=== PATIENT | female | born 1965 | race Asian ===

== ENCOUNTER 2023-10-04 11:34 | Outpatient (CLI) | payer OTHER, SELFPAY ==
--- NOTE | ~2023-10-04 | XR_ITS ---
EXAMINATION: XR shoulder LT min 2V DATE: 10/04/2023 11:52 INDICATION: Left shoulder pain TECHNIQUE: AP internally and externally rotated, AP oblique externally rotated and axillary views of the left shoulder were obtained. COMPARISON: None FINDINGS: Normal alignment. No fracture. Glenohumeral joint is normal. Mild acromioclavicular osteoarthritis. Soft tissues are unremarkable. Visualized portions of the mid and upper lungs are clear. IMPRESSION: Mild left acromioclavicular osteoarthritis. No acute osseous adenopathy. Reviewed, dictated and finalized at location B.
== END 2023-10-04 11:35 ==
LOC: MICIMG 11:36
PROVIDERS: PCP Physician Assistant; Visit Provider Physician Assistant
DX: M19.012 Primary osteoarthritis, left shoulder (principal); Z82.62 Family history of osteoporosis; Z12.39 Encounter for other screening for malignant neoplasm of breast
CPT/HCPCS: 73030

== ENCOUNTER 2024-03-06 08:05 | Outpatient (CLI) | payer OTHER, SELFPAY ==
--- NOTE | ~2024-03-06 | DEXA_ITS ---
Bone Density Report Name: MIHAI UP Age: 58 Sex: Female Ethnicity: White Date of : 1965 Indication: postmenopausal; screening for osteoporosis; hysterectomy; Referring Provider: RUPAL, GENOVEVA Study: Bone densitometry was performed. Exam Date: March 06, 2024 Accession number: [id number] Bone Density: Region BMD T-score Z-score Classification AP Spine(L1-L4) 0.710 -3.1 -1.6 Osteoporosis Femoral Neck (Left) 0.630 -2.0 -0.7 Osteopenia Total Hip (Left) 0.826 -0.9 0.0 Normal Femoral Neck (Right) 0.601 -2.2 -0.9 Osteopenia Total Hip (Right) 0.806 -1.1 -0.1 Osteopenia Total Hip Mean 0.816 -1.0 -0.1 Normal World Health Organization criteria for BMD impression classify patients as: Normal (T-score at or above -1.0), Osteopenia (T-score between -1.0 and -2.5), or Osteoporosis (T-score at or below -2.5). 10-year Fracture Risk: FRAX not reported because: Some T-score for Spine Total or Hip Total or Femoral Neck at or below -2.5 Clinical Information Provided by Patient: Has used the following medications: Calcium Has the following medical conditions: Hysterectomy Patient maximum height was 64 No regular weight bearing exercise Drinks caffeinated beverages Onset of menses at age 11 Number of children 2 Impression: The patient has osteoporosis, based on the Total Spine T-score. Discussion: INCREASED RISK OF FRACTURE. BONE DENSITY IS UNDESIRABLY LOW AT ONE OR MORE SKELETAL SITES, CONSISTENT WITH POSTMENOPAUSAL OSTEOPOROSIS. This patient's lowest T-score meets the World Health Organization's (WHO) criteria for osteoporosis at one or more sites (T-score -2.5 or below). In untreated patients, the risk of osteoporotic fracture increases approximately two-fold for each 1.0 SD decrease in T-score. Low bone density is not the only risk factor for fracture; also consider factors such as patient's age, frailty or poor health, risk of falling, risk of injury, previous osteoporotic fracture, family history of osteoporosis, cigarette smoking, low body weight, etc. Not everyone with low bone mineral density has osteoporosis; osteomalacia and other metabolic bone disorders should also be considered. Patients who have osteoporosis should be evaluated for specific diseases and conditions (secondary causes) that may cause or contribute to bone loss. The [place] [employer] (AACE) and National Osteoporosis Foundation (NOF) recommend pharmacologic intervention for all postmenopausal women whose T-score is in this range. The patient should follow a healthful lifestyle (good nutrition with adequate calcium and vitamin D, and appropriate weight-bearing exercise). Follow-Up: Consider a repeat BMD and Vertebral Fracture Assessment (VFA) exam in 2 years or sooner if medically necessary, to reassess this patient's status. Reported by: GRACE on 03/06/2024 8:43:00 AM. Reviewed, dictated and finalized at location A. CARRIE
== END 2024-03-06 08:06 | disposition home or self-care (01) ==
LOC: ANHIMG 08:11
PROVIDERS: PCP Physician Assistant; Visit Provider Physician Assistant
DX: M81.0 Age-related osteoporosis without current pathological fracture (principal); M85.89 Other specified disorders of bone density and structure, multiple sites; Z82.62 Family history of osteoporosis
CPT/HCPCS: 77080